=== PATIENT | female | born 1980 | race Caucasian/White ===

== ENCOUNTER → 2017-01-04 | Outpatient (CLI) | payer MEDICARE, MEDICAID ==
--- NOTE | 2017-01-05 09:13 | REP ---
MRI CERVICAL SPINE WITHOUT CONTRAST: HISTORY: Cervicalgia. COMPARISON: 11/10/2015 A disc bulge is present at the C3-4 level. There is minimal effacement of the thecal sac without spinal cord compression. The C3 neural foramina are patent. A disc bulge is present at the C4-5 level. There is minimal effacement of the thecal sac without spinal cord compression. The C4 neural foramina are patent. A disc bulge is present at the C5-6 level. The previously noted disc protrusion is not seen. There is moderate effacement of the thecal sac without spinal cord compression. Uncinate process hypertrophy is present on the right. This produces minimal narrowing of the right C5 neural foramen. The left C5 neural foramen is patent. A disc bulge is present at the C6-7 level. There is mild effacement of the thecal sac without spinal cord compression. Uncinate process hypertrophy is present on the right. This produces minimal narrowing of the right C6 neural foramen. The left C6 neural foramen is patent. There is no other disc bulge or herniation. The remaining neural foramina are patent. The spinal cord is normal in signal intensity. The C5-6 and C6-7 intervertebral discs are decreased in height consistent with disc degeneration. Normal signal intensity is present in the cervical vertebral bodies. IMPRESSION: There is cervical spondylosis at the C3-4 through C6-7 levels without spinal cord compression. The previously noted disc protrusion at the C5-6 level is not seen. There is no other significant change. Signed by Cornelio Estrada MD 01/05/2017 09:18 A
== END ==
LOC: M RAD 18:00
PROVIDERS: ATTEND Physician Assistant Medical
DX: M47.812 Spondylosis without myelopathy or radiculopathy, cervical region (principal)

== ENCOUNTER → 2017-02-08 | Outpatient (CLI) | payer MEDICARE, MEDICAID ==
--- NOTE | 2017-02-08 17:30 | REP ---
Clinical: Neck pain. Technique: AP, lateral, and open-mouth views of the cervical spine. Findings: Mild reversal of normal lordosis appreciated and centered at C5-6. No acute fracture / compression injury or subluxation. Moderate degenerative disc osteophyte complex noted at the C4-5, C5-6, C6-7 levels with marginal osteophytes, endplate sclerosis and disc space narrowing. Impression: Mild reversal of normal lordosis and moderate degenerative changes at C4 - C7. Signed by Bryce Erazo MD 02/08/2017 05:21 P
[2017-02-08 19:19] LABS: TOTAL PROTEIN 7.1 GM/DL (6.4-8.2)
[2017-02-09 10:07] LABS: ALBUMIN 4.26 GM/DL (3.29-5.55); GAMMA GLOBULIN % 15.1 % (11.1-18.8)
[2017-02-11 00:06] LABS: Lyme Disease IgG/IgM Antibodie <0.91 ISR (0.00-0.90); Lyme Disease IgM Ab Quantitati <0.80 index (0.00-0.79)
== END ==
LOC: M WUC 16:43
PROVIDERS: ATTEND Physician Assistant Medical
DX: M54.2 Cervicalgia (principal)

== ENCOUNTER 2017-07-13 09:32 | Emergency (ER) | payer MEDICARE, MEDICAID ==
[~2017-07-13] VITALS: Ht 162.6 cm; Wt 65.9 kg
[2017-07-13 09:33] VITALS: BP 137/68
[2017-07-13] MEDS ORDERED: RANI300T PO (09:42)
[2017-07-13] MEDS ORDERED: CLIN150C14 PO (10:04)
[2017-07-13] MEDS ORDERED: IBUP-1022 PO (10:04)
== END 2017-07-13 10:42 | disposition home or self-care (01) ==
LOC: M ED 09:32
DX: K02.9 Dental caries, unspecified (principal); K04.7 Periapical abscess without sinus; S02.5XXA Fracture of tooth (traumatic), initial encounter for closed fracture; X58.XXXA Exposure to other specified factors, initial encounter; Y92.89 Other specified places as the place of occurrence of the external cause; Y93.89 Activity, other specified; Y99.8 Other external cause status; Z88.1 Allergy status to other antibiotic agents; Z88.2 Allergy status to sulfonamides; F17.210 Nicotine dependence, cigarettes, uncomplicated

== ENCOUNTER 2017-10-20 18:03 | Emergency (ER) | payer MEDICARE, MEDICAID ==
[2017-10-20] MEDS: CLINDAMYCIN 150 MG CAP PO (18:39)
== END 2017-10-20 18:46 | disposition home or self-care (01) ==
LOC: M ED 18:03
DX: K05.10 Chronic gingivitis, plaque induced (principal); K02.9 Dental caries, unspecified; K21.9 Gastro-esophageal reflux disease without esophagitis; Z79.899 Other long term (current) drug therapy; Z88.0 Allergy status to penicillin; Z88.2 Allergy status to sulfonamides
CPT/HCPCS: 99282

== ENCOUNTER 2017-11-08 15:23 | Emergency (ER) | payer MEDICARE, MEDICAID | END 2017-11-08 18:23 | disposition home or self-care (01) | LOC: M ED 15:23 | DX: Z76.0 Encounter for issue of repeat prescription (principal); M54.9 Dorsalgia, unspecified; G89.29 Other chronic pain; K21.9 Gastro-esophageal reflux disease without esophagitis; F17.200 Nicotine dependence, unspecified, uncomplicated; Z88.0 Allergy status to penicillin; Z88.2 Allergy status to sulfonamides; Z79.899 Other long term (current) drug therapy; Z79.891 Long term (current) use of opiate analgesic | CPT/HCPCS: 99283 ==

== ENCOUNTER → 2020-01-12 | Outpatient (REF) | payer MEDICARE, MEDICAID ==
[~2020-01-12] MED LIST: CLEO300C2 PO; CLIN150C14 PO; IBUP-1022 PO; LYRI75CA PO; RANI300T PO; TRAM1CAP15 PO; TRAM50TA2 PO; ZYRT10CA PO
[2020-01-12 11:57] LABS: BASO # 0.1 10^3/uL (0.0-0.2); BASO % 0.9 % (0.0-1.0); EOS # 0.4 10^3/uL (0.0-0.5); EOS % 4.4 % (0.0-3.0); HEMATOCRIT 37.7 % (36.0-47.0); HEMOGLOBIN 12.4 g/dl (12.0-15.5); LYMPH # 3.6 10^3/uL (1.5-5.0); LYMPH % 41.1 % (24.0-44.0); MEAN CORPUSCULAR HEMOGLOBIN 29.9 pg (27.0-33.0); MEAN CORPUSCULAR HGB CONC 32.9 g/dl (32.0-36.5); MEAN CORPUSCULAR VOLUME 90.8 fl (80.0-96.0); MONO # 0.7 10^3/uL (0.0-0.8); MONO % 7.6 % (0.0-5.0); NEUTROPHILS # 4.1 10^3/uL (1.5-8.5); NEUTROPHILS % 45.8 % (36.0-66.0); PLATELET COUNT, AUTOMATED 286 10^3/uL (150-450); RED BLOOD COUNT 4.15 10^6/uL (4.00-5.40); WHITE BLOOD COUNT 8.8 10^3/uL (4.0-10.0)
[2020-01-12 12:58] LABS: ALBUMIN 3.3 GM/DL (3.2-5.2); ALT/SGPT 37 U/L (12-78); BILIRUBIN,TOTAL 0.1 MG/DL (0.2-1.0); BLOOD UREA NITROGEN 9 MG/DL (7-18); CALCIUM LEVEL 8.8 MG/DL (8.5-10.1); CARBON DIOXIDE LEVEL 28 MEQ/L (21-32); CHLORIDE LEVEL 106 MEQ/L (98-107); CHOLESTEROL LEVEL 226 MG/DL (<200); CHOLESTEROL RISK RATIO 7.062 (<5); CREATININE FOR GFR 0.83 MG/DL (0.55-1.30); GLOMERULAR FILTRATION RATE > 60.0 (>60); GLUCOSE, FASTING 103 MG/DL (70-100); HDL CHOLESTEROL 32 MG/DL (>40); NON-HDL-C 194 MG/DL; POTASSIUM SERUM 4.5 MEQ/L (3.5-5.1); SODIUM LEVEL 140 MEQ/L (136-145); THYROID STIMULATING HORMONE 0.692 uIU/ML (0.358-3.740); TOTAL PROTEIN 6.4 GM/DL (6.4-8.2); TRIGLYCERIDES LEVEL 536 MG/DL (<150)
[2020-01-12 13:10] LABS: HEMOGLOBIN A1c 5.6 %
== END ==
LOC: M LAB REF 11:32
PROVIDERS: ATTEND Nurse Practitioner Family
DX: Z72.0 Tobacco use (principal); M47.812 Spondylosis without myelopathy or radiculopathy, cervical region; G89.4 Chronic pain syndrome; Z68.30 Body mass index [BMI] 30.0-30.9, adult; E66.09 Other obesity due to excess calories; Z13.9 Encounter for screening, unspecified; M54.2 Cervicalgia; K21.9 Gastro-esophageal reflux disease without esophagitis; E07.9 Disorder of thyroid, unspecified

== ENCOUNTER → 2020-04-30 | Outpatient (REF) | payer MEDICARE, MEDICAID ==
[2020-04-30 14:39] LABS: BASO # 0.1 10^3/uL (0.0-0.2); BASO % 0.6 % (0.0-1.0); EOS # 0.4 10^3/uL (0.0-0.5); EOS % 4.3 % (0.0-3.0); HEMATOCRIT 39.5 % (36.0-47.0); HEMOGLOBIN 12.4 g/dl (12.0-15.5); LYMPH # 3.3 10^3/uL (1.5-5.0); MEAN CORPUSCULAR HEMOGLOBIN 27.9 pg (27.0-33.0); MEAN CORPUSCULAR HGB CONC 31.4 g/dl (32.0-36.5); MEAN CORPUSCULAR VOLUME 88.8 fl (80.0-96.0); MONO # 0.8 10^3/uL (0.0-0.8); NEUTROPHILS # 4.9 10^3/uL (1.5-8.5); NEUTROPHILS % 51.8 % (36.0-66.0); PLATELET COUNT, AUTOMATED 279 10^3/uL (150-450); RED BLOOD COUNT 4.45 10^6/uL (4.00-5.40); WHITE BLOOD COUNT 9.5 10^3/uL (4.0-10.0)
[2020-04-30 15:07] LABS: ALBUMIN 3.3 GM/DL (3.2-5.2); ALT/SGPT 19 U/L (12-78); BILIRUBIN,TOTAL 0.3 MG/DL (0.2-1.0); BLOOD UREA NITROGEN 10 MG/DL (7-18); CARBON DIOXIDE LEVEL 26 MEQ/L (21-32); CHLORIDE LEVEL 105 MEQ/L (98-107); CHOLESTEROL LEVEL 251 MG/DL (<200); CHOLESTEROL RISK RATIO 5.704 (<5); CREATININE FOR GFR 0.87 MG/DL (0.55-1.30); GLOMERULAR FILTRATION RATE > 60.0 (>60); GLUCOSE, FASTING 90 MG/DL (70-100); HDL CHOLESTEROL 44 MG/DL (>40); LDL CHOLESTEROL 168 MG/DL (<100); NON-HDL-C 207 MG/DL; SODIUM LEVEL 137 MEQ/L (136-145); TOTAL PROTEIN 6.9 GM/DL (6.4-8.2); TRIGLYCERIDES LEVEL 197 MG/DL (<150)
== END ==
LOC: M LAB REF 13:24
PROVIDERS: ATTEND Nurse Practitioner Family
DX: E78.5 Hyperlipidemia, unspecified (principal); E55.9 Vitamin D deficiency, unspecified; Z72.0 Tobacco use; Z13.9 Encounter for screening, unspecified; E66.09 Other obesity due to excess calories

== ENCOUNTER 2021-08-20 04:39 | Emergency (ER) | payer MEDICARE, MEDICAID ==
[~2021-08-20 04:39] MED LIST changes: -CLIN150C14 PO; +CLIN150C17 PO
[2021-08-20] MEDS ORDERED: ONDANSETRON 4MG/2ML VIAL IV ONE (09:05)
[2021-08-20] MEDS ORDERED: NS 1,000 ML IV ONE (09:05)
[2021-08-20 09:30] LABS: BASO % 0.2 % (0.0-1.0); HEMATOCRIT 36.9 % (36.0-47.0); LYMPH # 2.3 10^3/uL (1.5-5.0); LYMPH % 10.9 % (24.0-44.0); MEAN CORPUSCULAR HEMOGLOBIN 25.7 pg (27.0-33.0); MEAN CORPUSCULAR HGB CONC 32.5 g/dl (32.0-36.5); MONO % 5.1 % (2.0-8.0); NEUTROPHILS # 17.1 10^3/uL (1.5-8.5); NEUTROPHILS % 83.3 % (36.0-66.0); PLATELET COUNT, AUTOMATED 318 10^3/uL (150-450); RED BLOOD COUNT 4.67 10^6/uL (4.00-5.40); WHITE BLOOD COUNT 20.6 10^3/uL (4.0-10.0)
[2021-08-20 09:53] LABS: HCG, SERUM QUALITATIVE NEGATIVE (NEGATIVE)
[2021-08-20 09:55] LABS: ALBUMIN 3.4 GM/DL (3.2-5.2); ALT/SGPT 19 U/L (12-78); BILIRUBIN,DIRECT < 0.1 MG/DL (0.0-0.2); BILIRUBIN,TOTAL 0.1 MG/DL (0.2-1.0); BLOOD UREA NITROGEN 8 MG/DL (7-18); CALCIUM LEVEL 9.3 MG/DL (8.5-10.1); CARBON DIOXIDE LEVEL 24 MEQ/L (21-32); CHLORIDE LEVEL 108 MEQ/L (98-107); CREATININE FOR GFR 0.79 MG/DL (0.55-1.30); GLOMERULAR FILTRATION RATE > 60.0 (>58); GLUCOSE, FASTING 113 MG/DL (70-100); LIPASE 48 U/L (73-393); POTASSIUM SERUM 4.2 MEQ/L (3.5-5.1); SODIUM LEVEL 140 MEQ/L (136-145); TOTAL PROTEIN 7.3 GM/DL (6.4-8.2)
[2021-08-20 09:57] LABS: RSV AMPLIFICATION NEGATIVE (NEGATIVE)
[2021-08-20 11:07] VITALS: BP 138/64
[2021-08-20] MEDS ORDERED: ONDA4TAB6 PO (11:07)
== END 2021-08-20 11:52 | disposition home or self-care (01) ==
LOC: M ED 04:39
DX: R11.2 Nausea with vomiting, unspecified (principal); K21.9 Gastro-esophageal reflux disease without esophagitis; F17.200 Nicotine dependence, unspecified, uncomplicated; Z79.899 Other long term (current) drug therapy; Z88.0 Allergy status to penicillin; Z88.2 Allergy status to sulfonamides
CPT/HCPCS: 36415; 74021; 80048; 80076; 83690; 84703; 85025; 87631; 96361; 96374; 99284; J2405

== ENCOUNTER → 2025-03-12 | Outpatient (REF) | payer MEDICARE, MEDICAID, OTHER ==
[~2025-03-12] MED LIST changes: +ONDA-282 PO
[2025-03-13 12:43] LABS: ALT/SGPT 9 U/L (7.0-40); AST/SGOT 14 U/L (<34); CALCIUM LEVEL 8.5 MG/DL (8.5-10.1); CARBON DIOXIDE LEVEL 26 MMOL/L (20-31); CHLORIDE LEVEL 105 MMOL/L (98-107); CREATININE FOR GFR 0.72 MG/DL (0.55-1.30); GLOMERULAR FILTRATION RATE > 90.0 (>58); POTASSIUM SERUM 4.0 MMOL/L (3.5-5.1); SODIUM LEVEL 141 MMOL/L (136-145)
[2025-03-13 12:49] LABS: FREE T4 1.16 NG/DL (0.89-1.76)
== END ==
LOC: M LAB REF 12:02
PROVIDERS: ATTEND Family Medicine Addiction Medicine
DX: R22.43 Localized swelling, mass and lump, lower limb, bilateral (principal); Z79.899 Other long term (current) drug therapy

== ENCOUNTER 2025-06-28 19:15 | Emergency (ER) | payer OTHER, MEDICAID ==
[~2025-06-28] VITALS: Ht 162.6 cm; Wt 85.4 kg
[~2025-06-28 19:15] MED LIST changes: -IBUP-1022 PO; +IBUP600T42 PO
[2025-06-28] MEDS ORDERED: TIZA10TA PO (19:21)
[2025-06-28] MEDS ORDERED: PREG150C2 PO (19:21)
[2025-06-28 20:06] LABS: BASO # 0.1 10^3/uL (0.0-0.2); BASO % 0.4 % (0.0-1.0); EOS # 0.0 10^3/uL (0.0-0.5); EOS % 0.0 % (0.0-3.0); LYMPH # 1.6 10^3/uL (1.5-5.0); LYMPH % 13.5 % (24.0-44.0); MONO # 0.4 10^3/uL (0.0-0.8); MONO % 3.0 % (2.0-8.0); NEUTROPHILS # 9.8 10^3/uL (1.5-8.5); NEUTROPHILS % 82.3 % (36.0-66.0); PLATELET COUNT, AUTOMATED 223 10^3/uL (150-450)
[2025-06-28 20:15] LABS: KETONE, URINE AUTO RFX NEGATIVE (NEGATIVE); LEUKOCYTE ESTERASE UR AUTO RFX NEGATIVE (NEGATIVE); MUCUS, URINE RFX SMALL (NEGATIVE); NITRITE, URINE AUTO RFX NEGATIVE (NEGATIVE); RBC, URINE AUTO RFX 0 /HPF (0-3); SQUAM EPITHELIAL CELL UR AURFX 2 /HPF (0-6); WBC, URINE AUTO RFX 1 /HPF (0-3)
[2025-06-28 20:29] LABS: ALT/SGPT 11 U/L (7.0-40); AST/SGOT 29 U/L (<34); CALCIUM LEVEL 9.5 MG/DL (8.5-10.1); CARBON DIOXIDE LEVEL 24 MMOL/L (20-31); CHLORIDE LEVEL 106 MMOL/L (98-107); CREATININE FOR GFR 0.85 MG/DL (0.55-1.30); GLOMERULAR FILTRATION RATE 86.6 (>58); HCG, SERUM QUALITATIVE NEGATIVE (NEGATIVE); POTASSIUM SERUM 3.8 MMOL/L (3.5-5.1); SODIUM LEVEL 141 MMOL/L (136-145)
[2025-06-28] MEDS: ONDANSETRON 4MG/2ML VIAL IV ONE (22:30)
[2025-06-28] MEDS: NS (Normal Saline) 0.9% 1,000 ML IV ONE (22:41)
[2025-06-28] MEDS: ACETAMINOPHEN *IV* 1,000 MG in IV 1 EA IV ONE (22:42)
[2025-06-28] MEDS ORDERED: ISOVUE-370 76% 100 ML VIAL As Ordered ONE (23:20)
[2025-06-29] MEDS ORDERED: REGL10TA6 PO (00:53)
[2025-06-29] MEDS: METOCLOPRAMIDE 10 MG TAB PO ONE (01:15)
[2025-06-29 02:08] VITALS: BP 139/68; TEMP 98.7; O2SAT 100
== END 2025-06-29 02:09 | disposition home or self-care (01) ==
LOC: M ED 19:15
DX: K52.9 Noninfective gastroenteritis and colitis, unspecified (principal); R93.89 Abnormal findings on diagnostic imaging of other specified body structures; Z88.0 Allergy status to penicillin; Z88.2 Allergy status to sulfonamides
CPT/HCPCS: 74177; 76830; 80048; 80076; 81001; 83690; 84703; 85025; 93005; 93976; 96365; 96375; 99284; J0134; J2405; Q9967